=== PATIENT | male | born 1965 | race Caucasian/White ===

== ENCOUNTER 2018-05-28 10:40 | Emergency (ER) | payer SELFPAY ==
[2018-05-28] MEDS ORDERED: HYDROCODONE/APAP 10/325 TAB ONE (12:51)
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
[2018-05-28 21:20] VITALS: BP 173/99; TEMP 97.5; O2SAT 98
== END 2018-05-28 14:35 | disposition home or self-care (01) ==
LOC: ER 10:40
PROC: 2W3DX1Z Immobilization of Left Lower Arm using Splint (ICD-10-PCS; principal; 2018-05-28)
DX: S52.615A Nondisplaced fracture of left ulna styloid process, initial encounter for closed fracture (principal); S52.225A Nondisplaced transverse fracture of shaft of left ulna, initial encounter for closed fracture; Y09 Assault by unspecified means; M25.511 Pain in right shoulder; J45.909 Unspecified asthma, uncomplicated; I10 Essential (primary) hypertension; Z79.899 Other long term (current) drug therapy; F17.220 Nicotine dependence, chewing tobacco, uncomplicated
CPT/HCPCS: 99283